=== PATIENT | male | born 1995 | race Two or more races ===

== ENCOUNTER → 2020-08-25 | Outpatient (CLI) | payer BC, SELFPAY ==
--- NOTE | 2020-08-25 12:00 | TISS_PTH ---
PATIENT: ENRIKE NUNEZ LOC: [facility] U#:[id number] AGE/SX: 25/M ROOM: RE08/25/[address]: Dr. Aiden Thao III, MD : 1995 BED: DIS: 08/25/2020 SPEC #: [id number] RECD: 08/25/20 14:44 STATUS: JOSUE STELLA #: [id number] DEBI: 08/25/20 12:[address]: Homer Thao DEPT: SURGICAL PATHOLOGY RECD BY: Cristine Knight ENTERED: 08/26/20 07:01 SP TYPE: Tissue Bx ISABEL DR: Dr. Aiden Thao III, MD Tissues: Skin of back, NOS Procedures: Surgery Specimen Level III HEADER OPERATION: Excision upper back mass PRE-OP DIAGNOSIS: Upper back mass TISSUE SUBMITTED: Upper back tissue MICROSCOPIC DIAGNOSIS Right upper back mass, excisional biopsy: Consistent with fibrolipoma. SJ:katie 08/30/2020 MICROSCOPIC DESCRIPTION Slides are reviewed. GROSS DESCRIPTION Received is one container labeled with the patient's name and not further designated. The specimen consists of an irregular fragment of pink-yellow fibrofatty tissue measuring 3 x 2.5 x 1 cm. The specimen is inked and serially sectioned to reveal light lewis cut surfaces without areas of cyst formation, hemorrhage or necrosis. The specimen is inked, serially sectioned and totally submitted in two cassettes. / AM:katie 08/26/20 TC:5 CPT: [id number]
== END | disposition home or self-care (01) ==
LOC: LABSPEC 14:49
PROVIDERS: PCP Family Medicine; Referring Provider Family Medicine; Visit Provider Family Medicine
DX: R22.2 Localized swelling, mass and lump, trunk (principal)
CPT/HCPCS: 88304; 88305

== ENCOUNTER → 2024-07-15 | Outpatient (CLI) | payer OTHER, SELFPAY ==
[2024-07-15 12:15] LABS: Absolute Lymphocyte Count 2.29 X10^3/uL (0.83-4.51); Absolute Neutrophil Count 2.1 X10^3/uL (2.0-7.7); Basophil# 0.03 X10^3/uL; Basophil% 0.6 % (0-1); Eosinophil# 0.14 X10^3/uL; Eosinophils% 2.8 % (0-5); Hematocrit 44.5 % (40-54); Lymphocyte # 2.29 X10^3/ul (0.83-4.51); Lymphocyte % 46.2 % (19-41); Mean Corpuscular Hgb 30.1 pg (27.0-32.0); Mean Corpuscular Volume 83.8 fL (80-94); Mean Platelet Vol. 10.7 fl (6.2-12.0); Monocyte# 0.41 X10^3/uL; Monocyte% 8.3 % (0-10); NRBC Flagged by Analyzer 0 % (0-5); Neutrophil # 2.09 X10^3/uL (2.7-7.7); Neutrophil % 42.1 % (47-70); Platelet Count 245 K/mm3 (150-450); RBC Distribution Width CV 11.8 % (11.6-14.6); RBC Distribution Width SD 35.6 fl (35.1-43.9); Red Blood Count 5.31 M/mm3 (4.6-6.2)
[2024-07-15 15:17] LABS: Vitamin D,25 Hydroxy 39.9 ng/mL
[2024-07-15 15:44] LABS: Ferritin 175 ng/mL (26-388)
[2024-07-18 12:10] LABS: Vitamin D 1,25-Dihydroxy 39.3 pg/mL (24.8-81.5)
[2024-07-18 16:10] LABS: Zinc, Plasma or Serum 73 ug/dL (44-115)
== END | disposition home or self-care (01) ==
LOC: MTLAB 10:52
PROVIDERS: PCP Internal Medicine; Referring Provider Dermatology; Visit Provider Dermatology
DX: L64.8 Other androgenic alopecia (principal); D48.5 Neoplasm of uncertain behavior of skin
CPT/HCPCS: 36415; 82306; 82652; 82728; 84439; 84443; 84630; 85025

== ENCOUNTER → 2024-09-11 | Outpatient (CLI) | payer OTHER, SELFPAY ==
--- NOTE | 2024-09-11 18:32 | CT_ITS ---
STUDY: CT BRAIN WITHOUT CONTRAST REASON FOR EXAM: Male, 29 years old. potential osteoma RADIATION DOSAGE (If Supplied By Facility): CTDIvol = ( 44.99 ) mGy, DLP = ( 846.73 ) mGycm TECHNIQUE: Transaxial CT imaging of the brain was performed without administration of intravenous contrast material. Individualized dose optimization techniques were used for this CT. COMPARISON: No relevant priors. FINDINGS: Normal soft tissue structures. Extradural ossification of the inner table of the left temporal bone which may likely osteoma although cannot definitively exclude meningioma Normal size ventricles and extra-axial spaces for the patient''s age. Normal white matter tracts of the cerebral hemispheres. Normal basal ganglia and thalami. Normal brainstem. Normal cerebellum. There is no intracranial hemorrhage. There are no findings of an acute ischemic infarction. Normal visualized paranasal sinuses. CT/Brain/Head without Contrast IMPRESSION: Normal unenhanced CT scan of the brain. 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
== END | disposition home or self-care (01) ==
LOC: CT 18:33
PROVIDERS: PCP Internal Medicine; Referring Provider Surgery Plastic and Reconstructive Surgery; Visit Provider Surgery Plastic and Reconstructive Surgery
DX: D16.9 Benign neoplasm of bone and articular cartilage, unspecified (principal)